=== PATIENT | male | born 1970 | race Caucasian/White ===

== ENCOUNTER 2018-07-19 09:57 | Emergency (ER) | payer BC ==
[2018-07-19 10:47] LABS: ABS Basophils 0 10^3/ul (0-0.2); ABS Eosinophils 0 10^3/ul (0-0.6); ABS Lymphocytes 0.6 10^3/ul (1.0-4.8); ABS Monocytes 0.3 10^3/ul (0-0.8); ABS Neutrophils 4.3 10^3/ul (1.5-7.7); ABS Nucleated RBC 0 10^3/ul; Eosinophil % 0.3 %; Hematocrit 42 % (42-52); Hemoglobin 14.4 g/dl (14.0-18.0); Lymphocyte % 11.6 %; Mean Corpuscular HGB Conc 34 g/dl (31-36); Mean Corpuscular Hemoglobin 30 pg (27-31); Mean Corpuscular Volume 88 fL (80-94); Mean Platelet Volume 9.4 fL (7.4-10.4); Nucleated Red Blood Cells % 0.1; Platelet Count 194 10^3/ul (150-450); Red Blood Count 4.76 10^6/ul (4.00-5.40); Red Cell Distribution Width 13 % (10.5-15); White Blood Count 5.2 10^3/ul (3.5-10.8)
[2018-07-19 10:56] LABS: INR 3.1 (0.77-1.02)
[2018-07-19 11:15] LABS: EGFR Non-African American 112.9 (>60)
[2018-07-19 11:56] VITALS: BP 94/68
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
== END 2018-07-19 11:50 | disposition home or self-care (01) ==
LOC: ED 09:57
DX: R68.84 Jaw pain (principal)
CPT/HCPCS: 36415; 71046; 80053; 82553; 83605; 83735; 84484; 85025; 85610; 93005; 99282